=== PATIENT | female | born 1990 | race Caucasian/White ===

== ENCOUNTER 2018-05-21 15:55 | Inpatient (IN) ==
--- NOTE | 2018-05-21 16:26 | ED ---
History of Present Illness Primary Care Physician: NOT REQUIRED Chief Complaint: Elevated blood pressure History of Present Illness: 27-year-old G1 at 38/1 presenting to the OB ED for elevated blood pressures. Patient was seen in clinic today and found to have a blood pressure of 136/96. Patient states that she feels completely normal denies any headache, vision changes, chest pain or shortness of breath, nausea vomiting, abdominal pain, peripheral swelling. She also denies gush of fluid, vaginal bleeding, decreased movement or contractions. Patient has known HIV exposure as for partner is HIV positive. HIV testing in April 2018 was negative. Patient was also told that she has chronic hepatitis C, hepatitis C antibody and RNA were negative during this . She otherwise denies any complications during this . Patient has a history of IV drug use and is currently on Subutex. Weeks Gestation:: 38 Para: 0 : 1 PMFSH - Medical / Surgical Hx Neg / Unobtainable Surgical History: No Previous Surgery - Medical History Medical History: Medical History (Last Updated 05/21/18 @ 16:48 by Owen Bolanos MD, R2) Chronic hepatitis C HIV exposure - Tobacco History Smoking Status: Current every day smoker Packs Per Day: 0.5 - Alcohol History How Often Do You Have a Drink Containing Alcohol: Never - Substance Use History Substance History: Past History (Currently on Subutex. History of IV opiate abuse) Medications and Allergies Allergies Allergy/AdvReac Type Severity Reaction Status Date / Time No Known Allergies Allergy Uncoded 07/09/15 09:11 Home Medications Medication Instructions Recorded Confirmed Type buprenorphine HCl 16 mg SUBLINGUAL DAILY 05/21/18 05/21/18 History vit,[id number] 1 tab PO DAILY 05/21/18 05/21/18 History [PNV 29-1] Exam Vital signs: Vital Signs 05/21/18 16:23 Temperature 98.2 F Respiratory Rate 18 Narrative: GENERAL: Well-nourished, well-developed patient. SKIN: Warm and dry. HEAD: Normocephalic and atraumatic. EYES: No scleral icterus. No injection or drainage. ENT: No nasal drainage noted. Mucous membranes pink. Airway patent. NECK: Supple, trachea midline. No JVD. CARDIOVASCULAR: Regular rate and rhythm without murmurs, gallops, or rubs. RESPIRATORY: Breath sounds equal bilaterally. No accessory muscle use. ABDOMEN/GI: Abdomen soft, non-tender, bowel sounds present, no rebound, no guarding Gravid to 38 weeks size GENITOURINARY: Uterine Contractions: Absent FHT's: Category: 1 Baseline: 138 Reactive: y Variability: Moderate Decels: Absent EXTREMITIES: No cyanosis or edema. BACK: Nontender without obvious deformity. No CVA tenderness. NEUROLOGICAL: Awake and alert. Motor and sensory grossly within normal limits. Five out of 5 muscle strength in all muscle groups. Normal speech. - Constitutional no acute distress - Routine HEENT Exam Head: Present: normocephalic, atraumatic Eye: Present: PERRL - Routine Respiratory Exam Present: CTA bilaterally - Routine Cardiovascular Exam Present: RRR, S1, S2 - Routine Abdominal Exam Present: soft - Routine Exam Comments: Cervix 2-3/60/-3 vertex - Routine Neurological Exam Present: alert, oriented X3, CN II-XII intact Results - Labs CBC & Chem 7: 05/21/18 18:20 05/21/18 18:20 Labs: Urine from downstairs in the labs shows a greater than 500 of protein and a protein creatinine ratio 4.47 is exceedingly elevated Group B Strep: Negative Assessment and Plan - Diagnosis (1) Elevated blood pressure affecting in third trimester, antepartum Code(s): O16.3 - Unspecified maternal hypertension, third trimester Status: Acute Plan: 27-year-old G1 at 38/1 presenting to the OB ED with elevated blood pressure. Patient was sent from clinic after she was found to have a blood pressure of 136 /96. Patient is asymptomatic at this time and has not had any elevated blood pressures during this -Category 1 tracing with no contractions on the monitor -Blood pressure on presentation 123/88 -Ordering urinalysis, urine protein creatinine ratio, CBC, CMP, uric acid - Plan Plan for this patient is admission and induction of labor due to preeclampsia at 38 weeks. Cervix is favorable plan to begin Pitocin augmentation tonight and in the morning AROM with planned anticipated delivery after that Discharge Plan - Physicians Team ED Provider: Braydon Nickerson Primary Care Provider: NOT REQUIRED, - Rxs /Orders / Referrals /Forms Prescriptions: No Action buprenorphine HCl 8 mg Tablet, Sublingual 16 mg SUBLINGUAL DAILY vit,[id number] [PNV 29-1] 29 mg iron- 1 mg Tablet 1 tab PO DAILY - Discharge Instructions Print Language: Turkmen
[2018-05-21 18:57] LABS: Hematocrit 29.1 % (35.0-46.0); Hemoglobin 9.5 gm/dL (11.6-15.3); Mean Corpuscular HGB Conc 32.6 % (32.0-36.0); Mean Corpuscular Hemoglobin 24.1 pg (27.0-34.0); Mean Corpuscular Volume 73.9 fL (80.0-100.0); Mean Platelet Volume 8.8 fL (7.0-11.0); Platelet Count 306 th/mm3 (150-450); Red Blood Count 3.94 mil/mm3 (4.00-5.30); Red Cell Distribution Width 16.6 % (11.6-17.2); White Blood Count 10.5 th/mm3 (4.0-11.0)
[2018-05-21 19:05] LABS: Protein/Creatinine Ratio,Urine 4.47 (0.00-0.14)
[2018-05-21 19:10] LABS: Bacteria,Urine Many /hpf; Bilirubin,Urine Negative (Negative); Clarity,Urine Cloudy (Clear); Color,Urine Amber (Yellw/Straw); Glucose,Urine (UA) Negative (Negative); Hyaline Casts,Urine 17 /lpf (0-3); Leukocyte Esterase,Urine Small (Negative); Mucus,Urine Many /lpf (Occasional); Nitrite,Urine Negative (Negative); Specific Gravity,Urine 1.026 (1.002-1.035); Squamous Epithelial Cell,Urine 16 /hpf (0-5); Transitional Epi Cells,Urine <1 /hpf
[2018-05-21 19:17] LABS: Albumin 2.3 g/dL (3.4-5.0); Anion Gap 10 meq/L (5-15); Aspartate Aminotransferase 21 U/L (15-37); Blood Urea Nitrogen 13 mg/dL (7-18); Calcium 8.5 mg/dL (8.5-10.1); Carbon Dioxide 21.8 meq/L (21.0-32.0); Chloride 100 meq/L (98-107); Glomerular Filtration Rate Greater Than 89 mL/min (>89); Glucose,Random 60 mg/dL (74-106); Sodium 132 meq/L (136-145); Uric Acid 4.8 mg/dl (2.6-6.0)
[2018-05-21 19:18] LABS: Alanine Aminotransferase 20 U/L (10-53)
[2018-05-21] MEDS ORDERED: Sodium Chlor 0.9% Inj 500 ML IV.SIG PRN (19:20)
[2018-05-21] MEDS ORDERED: Sod Chloride 0.9% Inj 1,000 ML IV.CONT PRN (19:20)
[2018-05-21] MEDS ORDERED: fentaNYL Citrate Inj 100 MCG/2 ML Ampul IV.PUSH PRN ×2 (19:20)
[2018-05-21] MEDS ORDERED: Naloxone Inj 0.4 MG/ML Vial IV.PUSH PRN (19:20)
[2018-05-21] MEDS ORDERED: Oxytocin 30 Units/500ml Premix 30 UNITS/500 ML BAG IV.SIG ONE (19:20)
[2018-05-21 19:21] LABS: Alkaline Phosphatase 228 U/L (45-117); Total Protein 7.4 g/dL (6.4-8.2)
--- NOTE | 2018-05-21 19:27 | P.HPOB ---
OB - ED Note Patient Name: Carmel Rae Date of : 88 Patient Status: Emergency Emergency Provider: Braydon Nickerson Date: 05/21/18 16:24 Initialization Date: 05/21/18 16:24 History of Present Illness Primary Care Physician: NOT REQUIRED Chief Complaint: Elevated blood pressure History of Present Illness: 27-year-old G1 at 38/1 presenting to the OB ED for elevated blood pressures. Patient was seen in clinic today and found to have a blood pressure of 136/96. Patient states that she feels completely normal denies any headache, vision changes, chest pain or shortness of breath, nausea vomiting, abdominal pain, peripheral swelling. She also denies gush of fluid, vaginal bleeding, decreased movement or contractions. Patient has known HIV exposure as for partner is HIV positive. HIV testing in April 2018 was negative. Patient was also told that she has chronic hepatitis C, hepatitis C antibody and RNA were negative during this . She otherwise denies any complications during this . Patient has a history of IV drug use and is currently on Subutex. Weeks Gestation:: 38 Para: 0 : 1 PMFSH - Medical / Surgical Hx Neg / Unobtainable Surgical History: No Previous Surgery - Medical History Medical History: Medical History (Last Updated 05/21/18 @ 16:48 by Owen Bolanos MD, R2) Chronic hepatitis C HIV exposure - Tobacco History Smoking Status: Current every day smoker Packs Per Day: 0.5 - Alcohol History How Often Do You Have a Drink Containing Alcohol: Never - Substance Use History Substance History: Past History (Currently on Subutex. History of IV opiate abuse) Medications and Allergies Allergies Allergy/AdvReac Type Severity Reaction Status Date / Time No Known Allergies Allergy Uncoded 07/09/15 09:11 Home Medications Medication Instructions Recorded Confirmed Type buprenorphine HCl 16 mg SUBLINGUAL DAILY 05/21/18 05/21/18 History vit,[id number] 1 tab PO DAILY 05/21/18 05/21/18 History [PNV 29-1] Exam Vital signs: Vital Signs 05/21/18 16:23 Temperature 98.2 F Respiratory Rate 18 Narrative: GENERAL: Well-nourished, well-developed patient. SKIN: Warm and dry. HEAD: Normocephalic and atraumatic. EYES: No scleral icterus. No injection or drainage. ENT: No nasal drainage noted. Mucous membranes pink. Airway patent. NECK: Supple, trachea midline. No JVD. CARDIOVASCULAR: Regular rate and rhythm without murmurs, gallops, or rubs. RESPIRATORY: Breath sounds equal bilaterally. No accessory muscle use. ABDOMEN/GI: Abdomen soft, non-tender, bowel sounds present, no rebound, no guarding Gravid to 38 weeks size GENITOURINARY: Uterine Contractions: Absent FHT's: Category: 1 Baseline: 138 Reactive: y Variability: Moderate Decels: Absent EXTREMITIES: No cyanosis or edema. BACK: Nontender without obvious deformity. No CVA tenderness. NEUROLOGICAL: Awake and alert. Motor and sensory grossly within normal limits. Five out of 5 muscle strength in all muscle groups. Normal speech. - Constitutional no acute distress - Routine HEENT Exam Head: Present: normocephalic, atraumatic Eye: Present: PERRL - Routine Respiratory Exam Present: CTA bilaterally - Routine Cardiovascular Exam Present: RRR, S1, S2 - Routine Abdominal Exam Present: soft - Routine Exam Comments: Cervix 2-3/60/-3 vertex - Routine Neurological Exam Present: alert, oriented X3, CN II-XII intact Results - Labs CBC & Chem 7: 05/21/18 18:20 05/21/18 18:20 Labs: Urine from downstairs in the labs shows a greater than 500 of protein and a protein creatinine ratio 4.47 is exceedingly elevated Group B Strep: Negative Assessment and Plan - Diagnosis (1) Elevated blood pressure affecting in third trimester, antepartum Code(s): O16.3 - Unspecified maternal hypertension, third trimester Status: Acute Plan: 27-year-old G1 at 38/1 presenting to the OB ED with elevated blood pressure. Patient was sent from clinic after she was found to have a blood pressure of 136 /96. Patient is asymptomatic at this time and has not had any elevated blood pressures during this -Category 1 tracing with no contractions on the monitor -Blood pressure on presentation 123/88 -Ordering urinalysis, urine protein creatinine ratio, CBC, CMP, uric acid - Plan Plan for this patient is admission and induction of labor due to preeclampsia at 38 weeks. Cervix is favorable plan to begin Pitocin augmentation tonight and in the morning AROM with planned anticipated delivery after that Discharge Plan - Physicians Team ED Provider: Braydon Nickerson Primary Care Provider: NOT REQUIRED, - Rxs /Orders / Referrals /Forms Prescriptions: No Action buprenorphine HCl 8 mg Tablet, Sublingual 16 mg SUBLINGUAL DAILY vit,[id number] [PNV 29-1] 29 mg iron- 1 mg Tablet 1 tab PO DAILY - Discharge Instructions Print Language: Sami
[2018-05-21] MEDS ORDERED: Oxytocin 30 Units/500ml Premix 30 UNITS/500 ML BAG IV.SIG PRN (19:28)
[2018-05-21] MEDS ORDERED: Citric Acid/Sodium Citrate Liq 30 ML UDC PO SCH (19:30)
[2018-05-21 21:33] LABS: Baso % (Auto) 0.3 % (0.0-2.0); Hematocrit 28.9 % (35.0-46.0); Hemoglobin 9.1 gm/dL (11.6-15.3); Lymph % (Auto) 8.2 % (9.0-44.0); Mean Corpuscular HGB Conc 31.5 % (32.0-36.0); Mean Corpuscular Hemoglobin 23.1 pg (27.0-34.0); Mean Corpuscular Volume 73.4 fL (80.0-100.0); Mono # (Auto) 0.7 th/mm3 (0.0-0.9); Mono % (Auto) 5.7 % (0.0-8.0); Neut # (Auto) 10.6 th/mm3 (1.8-7.7); Neut % (Auto) 85.8 % (16.0-70.0); Platelet Count 300 th/mm3 (150-450); Red Blood Count 3.94 mil/mm3 (4.00-5.30); Red Cell Distribution Width 16.6 % (11.6-17.2); White Blood Count 12.3 th/mm3 (4.0-11.0)
[2018-05-21 21:56] LABS: Alanine Aminotransferase 20 U/L (10-53)
[2018-05-21 21:58] LABS: Alkaline Phosphatase 225 U/L (45-117); Total Protein 7.5 g/dL (6.4-8.2)
[2018-05-21 22:11] LABS: Albumin 2.3 g/dL (3.4-5.0); Anion Gap 12 meq/L (5-15); Aspartate Aminotransferase 31 U/L (15-37); Blood Urea Nitrogen 12 mg/dL (7-18); Calcium 8.5 mg/dL (8.5-10.1); Carbon Dioxide 19.5 meq/L (21.0-32.0); Chloride 100 meq/L (98-107); Glomerular Filtration Rate Greater Than 89 mL/min (>89); Glucose,Random 55 mg/dL (74-106); Potassium 4.1 meq/L (3.5-5.1); Sodium 131 meq/L (136-145)
[2018-05-22 00:18] LABS: Amphetamine Urine With Conf Neg (Neg); Benzodiazepine Urine With Conf Neg (Neg)
[2018-05-22] MEDS ORDERED: fentaNYL 2MCG-Bupiv 0.125% Epi 150 ML EPIDURAL ONE (09:59)
[2018-05-22] MEDS ORDERED: fentaNYL Citrate Inj 100 MCG/2 ML Ampul EPIDURAL ONE (10:59)
[2018-05-22] MEDS ORDERED: fentaNYL 2MCG-Bupiv 0.125% Epi 150 ML EPIDURAL PRN (10:59)
[2018-05-22] MEDS ORDERED: Naloxone Inj 0.4 MG/ML Vial IV.PUSH PRN ×2 (14:30→14:31)
[2018-05-22] MEDS ORDERED: Zolpidem Tartrate 5 MG Tablet PO PRN (14:30)
[2018-05-22] MEDS ORDERED: Benzocaine 20% Top Spray 60 ML Can TOPICAL PRN (14:30)
[2018-05-22] MEDS ORDERED: Acetaminophen 325 MG Tablet PO PRN ×2 (14:30→14:31)
[2018-05-22] MEDS ORDERED: Oxytocin 30 Units/500ml Premix 30 UNITS/500 ML BAG IV.CONT SCH (14:30)
[2018-05-22] MEDS ORDERED: Bisacodyl 10 MG Supp RECTAL PRN (14:30)
[2018-05-22] MEDS ORDERED: Ibuprofen 400 MG Tablet PO PRN (14:31)
[2018-05-22] MEDS ORDERED: Ketorolac Inj 30 MG/ML (IVP) Vial IV.PUSH PRN (14:32)
--- NOTE | 2018-05-22 14:38 | P.OBDELI ---
Weeks Gestation: 38 Medical Induction of Labor: Yes Artificial Rupture of Membrane: Yes Anesthesia: Epidural Episiotomy: midline Vaginal Delivery: Normal Presentation: Occiput anterior Nuchal Cord: None Delayed Cord Clamping (45 sec): Yes Placenta: Spontaneous delivery Laceration: Episiotomy, 3 deg Repair: Chromic running, Vicryl interrupted Estimated blood loss (mL): 200 Male A Weight: 3.195 kg score (1 min): 9 score (5 min): 9 Additional Information: Head delivered by maternal effort. No nuchal cord. Anterior shoulder delivered without complication. Placenta delivered without complication. 3rd degree repaired with Vicryl interrupted and then chromic running.
[2018-05-22] MEDS ORDERED: Silver Nitrate/Potassium Nitrate Applicator Sticks TOPICAL ONE (15:22)
[2018-05-22] MEDS ORDERED: Measles/Mumps/Rubella Vaccine Inj 0.5 ML Vial SQ ONE (16:00)
[2018-05-22] MEDS ORDERED: Diphtheria/Tetanus/Pertussis Vaccine Inj 0.5 ML Syringe IM ONE (16:00)
[2018-05-22] MEDS: Ibuprofen 400 MG Tablet PO PRN (20:36)
[2018-05-22] MEDS: Witch Hazel 50%/Glyderin 12.5% 40 Pad Jar RECTAL PRN (20:36)
[2018-05-22] MEDS: Senna/Docusate Sodium 8.6/50 MG Tablet PO SCH (20:36)
[2018-05-23] MEDS: Ibuprofen 400 MG Tablet PO PRN ×3 (05:31→22:44)
--- NOTE | 2018-05-23 08:42 | P.PNOB ---
Subjective Post day: 1 Interval history: Patient is a 27-year-old delivered at 38 weeks and 2days. Patient is day 1 after . Patient's pain is well-controlled. Patient reports eating and drinking without any nausea or vomiting. Patient reports minimal bleeding. Patient has passed gas but no bowel movements. Patient is walking without lower extremity pain or shortness of breath. Patient reports desire for contraception and breast-feeding. Objective Vital Signs/I&O: Vital Signs 05/22/18 09:40 05/22/18 09:45 05/22/18 10:25 Temperature 98.2 F Pulse Rate 75 65 Respiratory Rate 19 Blood Pressure 129/85 148/75 H 05/22/18 10:40 05/22/18 10:55 05/22/18 11:10 Temperature Pulse Rate 71 67 69 Respiratory Rate Blood Pressure 98/55 L 139/77 128/70 05/22/18 11:40 05/22/18 12:00 05/22/18 12:01 Temperature 97.7 F Pulse Rate 69 78 Respiratory Rate 19 Blood Pressure 128/81 115/65 05/22/18 12:40 05/22/18 14:01 05/22/18 14:30 Temperature Pulse Rate 72 77 Respiratory Rate 20 Blood Pressure 121/89 152/84 H 05/22/18 14:53 05/22/18 15:01 05/22/18 15:16 Temperature Pulse Rate 101 H 75 66 Respiratory Rate 18 Blood Pressure 152/121 H 125/57 L 135/90 05/22/18 17:16 05/22/18 21:50 05/23/18 00:00 Temperature 98.3 F 98.1 F Pulse Rate 74 90 74 Respiratory Rate 16 18 18 Blood Pressure 147/95 H 155/96 H 149/83 H Result Diagrams: 05/21/18 20:00 05/21/18 20:00 Objective Remarks: GENERAL: Well-nourished, well-developed patient. CARDIOVASCULAR: Regular rate and rhythm without murmurs, gallops, or rubs. RESPIRATORY: Breath sounds equal bilaterally. No accessory muscle use. ABDOMEN/GI: Abdomen soft, non-tender. Fundus: Firm, non-tender at umbilicus. GENITOURINARY: Light to moderate bleeding. EXTREMITIES: No cyanosis or edema, non-tender, without signs of DVT. Medications and IVs: Active Medications Acetaminophen (Tylenol) 650 mg PO Q4H PRN PRN Reason: PAIN SCALE 1 TO 2 Al Hydroxide/Mg Hydroxide (Milk Of Magnesia Liq) 30 ml PO Q12H PRN PRN Reason: Mild Constipation Benzocaine (Americaine 20% Top [place]) 1 spray TOPICAL Q4H PRN PRN Reason: For Perineum Discomfort Bisacodyl (Dulcolax Supp) 10 mg RECTAL DAILY PRN PRN Reason: SEVERE CONSITIPATION Buprenorphine HCl (Sublingual) 8 mg SL BID JESSICA Last Admin: 05/22/18 20:37 Dose: 8 mg Ephedrine Sulfate (Ephedrine/Ns Syringe) 10 mg IV.PUSH UNSCH PRN PRN Reason: SEE LABEL COMMENTS Stop: 05/23/18 10:59 Oxytocin (Pitocin 30 Units/Ns 500 Ml Premix) 30 units in 500 mls @ 2 mls/hr IV.SIG TITRATE PRN; Protocol PRN Reason: For induction of labor Last Admin: 05/22/18 12:19 Dose: 2 milliunit/min, 2 mls/hr Fentanyl/Bupivacaine/Sodium Chlor (Fentanyl 2 Mcg-Bupiv 0.125% Epi) 150 mls @ 12 mls/hr EPIDURAL PRN PRN PRN Reason: for Labor Pain Ibuprofen (Motrin) 800 mg PO Q8H PRN PRN Reason: For cramping Last Admin: 05/23/18 05:31 Dose: 800 mg Ketorolac Tromethamine (Toradol Inj) 30 mg IV.PUSH Q6H PRN PRN Reason: PAIN 6-10;IF UNABLE TO TAKE PO Lactulose (Lactulose Liq) 30 ml PO DAILY PRN PRN Reason: SEVERE CONSITIPATION Miscellaneous Information (Misc Information) 1 each OTHER UNSCH PRN PRN Reason: SEE LABEL COMMENTS Stop: 05/23/18 10:59 Miscellaneous Information (Misc Information) 1 each OTHER UNSCH PRN PRN Reason: SEE LABEL COMMENTS Stop: 05/23/18 10:59 Naloxone HCl (Narcan Inj) 0.1 mg IV.PUSH Q2M PRN PRN Reason: for opiate reversal Naloxone HCl (Narcan Inj) 0.1 mg IV.PUSH Q2M PRN PRN Reason: for opiate reversal Ondansetron HCl (Zofran Odt) 4 mg PO Q6H PRN PRN Reason: NAUSEA OR VOMITING Oxycodone/Acetaminophen (Percocet 5/325 Mg) 1 tab PO Q4H PRN PRN Reason: PAIN 6-10 Last Admin: 05/23/18 05:31 Dose: 1 tab Senna/Docusate Sodium (Marion-Colace) 1 tab PO BID JESSICA Last Admin: 05/22/18 20:36 Dose: 1 tab Sennosides (Senokot) 17.2 mg PO Q12H PRN PRN Reason: Moderate Constipation Sodium Chloride (Ns Flush) 2 ml IV.FLUSH BID JESSICA Sodium Chloride (Ns Flush) 2 ml IV.FLUSH BID JESSICA Sodium Chloride (Ns Flush) 2 ml IV.FLUSH PRN PRN PRN Reason: FLUSH AFTER USING IV ACCESS Sodium Chloride (Ns Flush) 2 ml IV.FLUSH PRN PRN PRN Reason: FLUSH AFTER USING IV ACCESS Witch Alejandra/Glycerin (Tucks Pads) 1 applicatio RECTAL QID PRN PRN Reason: HEMORRHOIDS Last Admin: 05/22/18 20:36 Dose: 1 applicatio Zolpidem Tartrate (Ambien) 5 mg PO HS PRN PRN Reason: SLEEP Assessment and Plan - Diagnosis (1) Vaginal delivery Code(s): O80 - Encounter for full-term uncomplicated delivery Status: Acute Plan: Patient is a 27-year-old delivered at 38 weeks and 2days. Patient is day 1 after .Patient was counseled to do 6 weeks of pelvic rest. Patient was counseled to follow up in 6 weeks. Patient requested follow-up and contraception. --AF VSS --Continue routine care --Motrin and Tylenol when necessary for pain --Encourage OOB --Pelvic rest for 6 weeks will need follow-up appointment at that time. --Contraception: Depo --Anticipate discharge tomorrow
[2018-05-23] MEDS: Senna/Docusate Sodium 8.6/50 MG Tablet PO SCH ×2 (09:52→22:43)
--- NOTE | 2018-05-24 07:47 | P.PNOB ---
Subjective Interval history: Patient is a 27-year-old delivered at 38 weeks and 2 days. Patient is day 2 after . Patient's pain is well-controlled. Patient reports eating and drinking without any nausea or vomiting. Patient reports minimal bleeding. Patient has passed gas and bowel movements. Patient is walking without lower extremity pain or shortness of breath. Patient reports desire for contraceptio. Objective Vital Signs/I&O: Vital Signs 05/23/18 08:30 05/23/18 12:00 05/23/18 19:00 Temperature 97.9 F 97.7 F Pulse Rate 54 L 63 20 L Respiratory Rate 20 20 20 Blood Pressure 154/90 H 136/84 140/84 Result Diagrams: 05/21/18 20:00 05/21/18 20:00 Objective Remarks: GENERAL: Well-nourished, well-developed patient. CARDIOVASCULAR: Regular rate and rhythm without murmurs, gallops, or rubs. RESPIRATORY: Breath sounds equal bilaterally. No accessory muscle use. ABDOMEN/GI: Abdomen soft, non-tender. Fundus: Firm, non-tender at umbilicus. GENITOURINARY: Light to moderate bleeding. EXTREMITIES: No cyanosis or edema, non-tender, without signs of DVT. Medications and IVs: Active Medications Acetaminophen (Tylenol) 650 mg PO Q4H PRN PRN Reason: PAIN SCALE 1 TO 2 Al Hydroxide/Mg Hydroxide (Milk Of Magnesia Liq) 30 ml PO Q12H PRN PRN Reason: Mild Constipation Benzocaine (Americaine 20% Top [place]) 1 spray TOPICAL Q4H PRN PRN Reason: For Perineum Discomfort Bisacodyl (Dulcolax Supp) 10 mg RECTAL DAILY PRN PRN Reason: SEVERE CONSITIPATION Buprenorphine HCl (Sublingual) 8 mg SL BID JESSICA Last Admin: 05/24/18 03:55 Dose: Not Given Oxytocin (Pitocin 30 Units/Ns 500 Ml Premix) 30 units in 500 mls @ 2 mls/hr IV.SIG TITRATE PRN; Protocol PRN Reason: For induction of labor Last Admin: 05/22/18 12:19 Dose: 2 milliunit/min, 2 mls/hr Fentanyl/Bupivacaine/Sodium Chlor (Fentanyl 2 Mcg-Bupiv 0.125% Epi) 150 mls @ 12 mls/hr EPIDURAL PRN PRN PRN Reason: for Labor Pain Ibuprofen (Motrin) 800 mg PO Q8H PRN PRN Reason: For cramping Last Admin: 05/23/18 22:44 Dose: 800 mg Ketorolac Tromethamine (Toradol Inj) 30 mg IV.PUSH Q6H PRN PRN Reason: PAIN 6-10;IF UNABLE TO TAKE PO Lactulose (Lactulose Liq) 30 ml PO DAILY PRN PRN Reason: SEVERE CONSITIPATION Medroxyprogesterone Acetate (Depo-Provera Inj) 150 mg IM ONCE ONE Stop: 05/24/18 08:01 Naloxone HCl (Narcan Inj) 0.1 mg IV.PUSH Q2M PRN PRN Reason: for opiate reversal Naloxone HCl (Narcan Inj) 0.1 mg IV.PUSH Q2M PRN PRN Reason: for opiate reversal Ondansetron HCl (Zofran Odt) 4 mg PO Q6H PRN PRN Reason: NAUSEA OR VOMITING Oxycodone/Acetaminophen (Percocet 5/325 Mg) 1 tab PO Q4H PRN PRN Reason: PAIN 6-10 Last Admin: 05/24/18 03:52 Dose: 1 tab Senna/Docusate Sodium (Mar[place]-Colace) 1 tab PO BID [facility] Last Admin: 05/23/18 22:43 Dose: 1 tab Sennosides (Senokot) 17.2 mg PO Q12H PRN PRN Reason: Moderate Constipation Sodium Chloride (Ns Flush) 2 ml IV.FLUSH BID [facility] Last Admin: 05/23/18 22:45 Dose: Not Given Sodium Chloride (Ns Flush) 2 ml IV.FLUSH BID [facility] Last Admin: 05/23/18 22:45 Dose: Not Given Sodium Chloride (Ns Flush) 2 ml IV.FLUSH PRN PRN PRN Reason: FLUSH AFTER USING IV ACCESS Sodium Chloride (Ns Flush) 2 ml IV.FLUSH PRN PRN PRN Reason: FLUSH AFTER USING IV ACCESS Witch Alejandra/Glycerin (Tucks Pads) 1 applicatio RECTAL QID PRN PRN Reason: HEMORRHOIDS Last Admin: 05/22/18 20:36 Dose: 1 applicatio Zolpidem Tartrate (Ambien) 5 mg PO HS PRN PRN Reason: SLEEP Assessment and Plan - Diagnosis (1) Vaginal delivery Code(s): O80 - Encounter for full-term uncomplicated delivery Status: Acute Plan: Patient is a 27-year-old delivered at 38 weeks and 2days. Patient is day 2 after .Patient was counseled to do 6 weeks of pelvic rest. Patient was counseled to follow up in 6 weeks. Patient requested follow-up and contraception. --AF VSS --Continue routine care --Motrin and Tylenol when necessary for pain --Encourage OOB --Pelvic rest for 6 weeks will need follow-up appointment at that time. --Contraception: Depo --Anticipate discharge today
[2018-05-24] MEDS ORDERED: medroxyPROGESTERone Acetate Inj 150 MG/ML Syringe IM ONE (08:00)
[2018-05-24] MEDS ORDERED: NIFEdipine 10 MG Capsule PO ONE (08:45)
[2018-05-24] MEDS: Labetalol 100 MG Tablet PO SCH ×2 (09:21→20:59)
[2018-05-24] MEDS: Ibuprofen 400 MG Tablet PO PRN (14:55)
[2018-05-24] MEDS: Senna/Docusate Sodium 8.6/50 MG Tablet PO SCH ×2 (17:52→21:00)
[2018-05-25] MEDS: Senna/Docusate Sodium 8.6/50 MG Tablet PO SCH ×2 (08:44→21:24)
[2018-05-25] MEDS: Labetalol 100 MG Tablet PO SCH (08:44)
--- NOTE | 2018-05-25 12:43 | P.PNOB ---
Subjective Post day: 3 Interval history: Ms Su had no acute events overnight; however, her BP is elevated to 172/ 91 this morning prior to her morning Labetalol dose. Pain is controlled, taking PO, ambulating, voiding and stooling. Lochia reducing in volume. Pt is breast and bottle feeding. Pt received depo-provera injection for control. Denies CP, SOB, N/V/D and leg pain. Objective Vital Signs/I&O: Vital Signs 05/24/18 16:34 05/24/18 20:00 05/25/18 07:40 Temperature 98.2 F 98.0 F Pulse Rate 78 74 79 Respiratory Rate Blood Pressure 132/81 141/88 H 172/91 H 05/25/18 09:40 Temperature Pulse Rate Respiratory Rate Blood Pressure 141/89 H Result Diagrams: 05/21/18 20:00 05/21/18 20:00 Objective Remarks: GENERAL: Well-nourished, well-developed patient in NAD. HEENT: Denies KHAN and visual changes. CARDIOVASCULAR: Regular rate and rhythm without murmurs, gallops, or rubs. RESPIRATORY: Breath sounds equal bilaterally. No accessory muscle use. ABDOMEN/GI: Abdomen soft, non-tender. Fundus: Firm, non-tender at umbilicus. GENITOURINARY: Light to moderate bleeding. EXTREMITIES: No cyanosis or edema, non-tender, without signs of DVT. Medications and IVs: Active Medications Acetaminophen (Tylenol) 650 mg PO Q4H PRN PRN Reason: PAIN SCALE 1 TO 2 Al Hydroxide/Mg Hydroxide (Milk Of Magnesia Liq) 30 ml PO Q12H PRN PRN Reason: Mild Constipation Benzocaine (Americaine 20% Top [place]) 1 spray TOPICAL Q4H PRN PRN Reason: For Perineum Discomfort Bisacodyl (Dulcolax Supp) 10 mg RECTAL DAILY PRN PRN Reason: SEVERE CONSITIPATION Buprenorphine HCl (Sublingual) 8 mg SL BID [facility] Last Admin: 05/25/18 08:44 Dose: 8 mg Oxytocin (Pitocin 30 Units/Ns 500 Ml Premix) 30 units in 500 mls @ 2 mls/hr IV.SIG TITRATE PRN; Protocol PRN Reason: For induction of labor Last Admin: 05/22/18 12:19 Dose: 2 milliunit/min, 2 mls/hr Fentanyl/Bupivacaine/Sodium Chlor (Fentanyl 2 Mcg-Bupiv 0.125% Epi) 150 mls @ 12 mls/hr EPIDURAL PRN PRN PRN Reason: for Labor Pain Ibuprofen (Motrin) 800 mg PO Q8H PRN PRN Reason: For cramping Last Admin: 05/24/18 23:06 Dose: 800 mg Ketorolac Tromethamine (Toradol Inj) 30 mg IV.PUSH Q6H PRN PRN Reason: PAIN 6-10;IF UNABLE TO TAKE PO Labetalol HCl (Trandate) 100 mg PO BID [facility] Last Admin: 05/25/18 08:44 Dose: 100 mg Lactulose (Lactulose Liq) 30 ml PO DAILY PRN PRN Reason: SEVERE CONSITIPATION Naloxone HCl (Narcan Inj) 0.1 mg IV.PUSH Q2M PRN PRN Reason: for opiate reversal Naloxone HCl (Narcan Inj) 0.1 mg IV.PUSH Q2M PRN PRN Reason: for opiate reversal Ondansetron HCl (Zofran Odt) 4 mg PO Q6H PRN PRN Reason: NAUSEA OR VOMITING Oxycodone/Acetaminophen (Percocet 5/325 Mg) 1 tab PO Q4H PRN PRN Reason: PAIN 6-10 Last Admin: 05/24/18 21:00 Dose: 1 tab Senna/Docusate Sodium (Marion-Colace) 1 tab PO BID [facility] Last Admin: 05/25/18 08:44 Dose: 1 tab Sennosides (Senokot) 17.2 mg PO Q12H PRN PRN Reason: Moderate Constipation Sodium Chloride (Ns Flush) 2 ml IV.FLUSH BID [facility] Last Admin: 05/25/18 03:31 Dose: Not Given Sodium Chloride (Ns Flush) 2 ml IV.FLUSH BID [facility] Last Admin: 05/25/18 03:31 Dose: Not Given Sodium Chloride (Ns Flush) 2 ml IV.FLUSH PRN PRN PRN Reason: FLUSH AFTER USING IV ACCESS Sodium Chloride (Ns Flush) 2 ml IV.FLUSH PRN PRN PRN Reason: FLUSH AFTER USING IV ACCESS Witch Alejandra/Glycerin (Tucks Pads) 1 applicatio RECTAL QID PRN PRN Reason: HEMORRHOIDS Last Admin: 05/22/18 20:36 Dose: 1 applicatio Zolpidem Tartrate (Ambien) 5 mg PO HS PRN PRN Reason: SLEEP Assessment and Plan - Diagnosis (1) Vaginal delivery Code(s): O80 - Encounter for full-term uncomplicated delivery Status: Acute Plan: Patient is a 27-year-old delivered at 38 weeks and 2 days. Patient is day 3 after . Patient was counseled to observe 6 weeks of pelvic rest. Patient advised to follow up with doctor in 1 week due to elevated BPs. Depo-provera injection provided for contraception prior to discharge. BP elevated this morning to 172/91 prior to morning dose of Labetalol. One hour following Labetalol 100 mg pt BP 141/89. Vital signs otherwise wnl and physical exam benign. 1. care --Continue routine care --Motrin and Tylenol when necessary for pain --Encourage OOB --Pelvic rest for 6 weeks will need follow-up appointment at that time. --Contraception: Depo injection provided during hospitalization 2. PIH --BP 172/91 this morning prior to Labetalol and 141/89 1 hour afterward --Will observe today; check VS q4h --Pt will need to follow up with [facility] in 1-3 days following discharge due to PIH Pt DW Maximo Boyle and Alessandro - Plan Plan for this patient is admission and induction of labor due to preeclampsia at 38 weeks. Cervix is favorable plan to begin Pitocin augmentation tonight and in the morning AROM with planned anticipated delivery after that
[2018-05-25] MEDS ORDERED: Labetalol 100 MG Tablet PO SCH ×2 (17:00)
[2018-05-26] MEDS ORDERED: Labetalol 200 MG Tablet PO ONE (08:45)
[2018-05-26] MEDS: Witch Hazel 50%/Glyderin 12.5% 40 Pad Jar RECTAL PRN (08:48)
[2018-05-26] MEDS: Senna/Docusate Sodium 8.6/50 MG Tablet PO SCH ×2 (08:49→21:36)
--- NOTE | 2018-05-26 11:55 | P.PNOB ---
Subjective Interval history: AFVSS overnight. Decreased lochia. Denies dysuria. No breast tenderness. Appetite good. No nausea or vomiting. No lightheadedness, dizziness. Ambulating well. Denies calf pain or shortness of breath. Otherwise, she is doing well this morning and has no other complaints. Objective Vital Signs/I&O: Vital Signs 05/25/18 12:50 05/25/18 15:15 05/25/18 21:20 Temperature 97.7 F Pulse Rate 86 86 90 Respiratory Rate 20 Blood Pressure 147/92 H 156/88 H 144/91 H 05/26/18 01:00 05/26/18 02:15 05/26/18 08:25 Temperature 97.6 F Pulse Rate 86 82 87 Respiratory Rate 18 16 18 Blood Pressure 163/102 H 134/86 142/94 H Result Diagrams: 05/21/18 20:00 05/21/18 20:00 Objective Remarks: GENERAL: Well-nourished, well-developed patient. CARDIOVASCULAR: Regular rate and rhythm without murmurs, gallops, or rubs. RESPIRATORY: Breath sounds equal bilaterally. No accessory muscle use. ABDOMEN/GI: Abdomen soft, non-tender. Fundus: Firm, non-tender at umbilicus. GENITOURINARY: Light to moderate bleeding. EXTREMITIES: No cyanosis or edema, non-tender, without signs of DVT. Medications and IVs: Active Medications Acetaminophen (Tylenol) 650 mg PO Q4H PRN PRN Reason: PAIN SCALE 1 TO 2 Al Hydroxide/Mg Hydroxide (Milk Of Magnesia Liq) 30 ml PO Q12H PRN PRN Reason: Mild Constipation Benzocaine (Americaine 20% [place]) 1 spray TOPICAL Q4H PRN PRN Reason: For Perineum Discomfort Last Admin: 05/26/18 08:48 Dose: 1 spray Bisacodyl (Dulcolax Supp) 10 mg RECTAL DAILY PRN PRN Reason: SEVERE CONSITIPATION Buprenorphine HCl (Sublingual) 8 mg SL BID JESSICA Last Admin: 05/26/18 09:37 Dose: 8 mg Oxytocin (Pitocin 30 Units/Ns 500 Ml Premix) 30 units in 500 mls @ 2 mls/hr IV.SIG TITRATE PRN; Protocol PRN Reason: For induction of labor Last Admin: 05/22/18 12:19 Dose: 2 milliunit/min, 2 mls/hr Fentanyl/Bupivacaine/Sodium Chlor (Fentanyl 2 Mcg-Bupiv 0.125% Epi) 150 mls @ 12 mls/hr EPIDURAL PRN PRN PRN Reason: for Labor Pain Ibuprofen (Motrin) 800 mg PO Q8H PRN PRN Reason: For cramping Last Admin: 05/26/18 08:48 Dose: 800 mg Ketorolac Tromethamine (Toradol Inj) 30 mg IV.PUSH Q6H PRN PRN Reason: PAIN 6-10;IF UNABLE TO TAKE PO Labetalol HCl (Trandate) 200 mg PO BID [facility] Lactulose (Lactulose Liq) 30 ml PO DAILY PRN PRN Reason: SEVERE CONSITIPATION Naloxone HCl (Narcan Inj) 0.1 mg IV.PUSH Q2M PRN PRN Reason: for opiate reversal Naloxone HCl (Narcan Inj) 0.1 mg IV.PUSH Q2M PRN PRN Reason: for opiate reversal Ondansetron HCl (Zofran Odt) 4 mg PO Q6H PRN PRN Reason: NAUSEA OR VOMITING Oxycodone/Acetaminophen (Percocet 5/325 Mg) 1 tab PO Q4H PRN PRN Reason: PAIN 6-10 Last Admin: 05/26/18 08:49 Dose: 1 tab Senna/Docusate Sodium ([place]-Colace) 1 tab PO BID [facility] Last Admin: 05/26/18 08:49 Dose: 1 tab Sennosides (Senokot) 17.2 mg PO Q12H PRN PRN Reason: Moderate Constipation Sodium Chloride (Ns Flush) 2 ml IV.FLUSH BID [facility] Last Admin: 05/26/18 08:50 Dose: Not Given Sodium Chloride (Ns Flush) 2 ml IV.FLUSH BID [facility] Last Admin: 05/26/18 08:50 Dose: Not Given Sodium Chloride (Ns Flush) 2 ml IV.FLUSH PRN PRN PRN Reason: FLUSH AFTER USING IV ACCESS Sodium Chloride (Ns Flush) 2 ml IV.FLUSH PRN PRN PRN Reason: FLUSH AFTER USING IV ACCESS Witch Alejandra/Glycerin (Tucks Pads) 1 applicatio RECTAL QID PRN PRN Reason: HEMORRHOIDS Last Admin: 05/26/18 08:48 Dose: 1 applicatio Zolpidem Tartrate (Ambien) 5 mg PO HS PRN PRN Reason: SLEEP Assessment and Plan - Diagnosis (1) Vaginal delivery Code(s): O80 - Encounter for full-term uncomplicated delivery Status: Acute Plan: Patient is a 27-year-old delivered at 38 weeks and 2 days. Patient is day 3 after . Patient was counseled to observe 6 weeks of pelvic rest. Patient advised to follow up with doctor in 1 week due to elevated BPs. Depo-provera injection provided for contraception prior to discharge. BP elevated this morning to 172/91 prior to morning dose of Labetalol. One hour following Labetalol 100 mg pt BP 141/89. Vital signs otherwise wnl and physical exam benign. 1. care --Continue routine care --Motrin and Tylenol when necessary for pain --Encourage OOB --Pelvic rest for 6 weeks will need follow-up appointment at that time. --Contraception: Depo injection provided during hospitalization 2. PIH --BP 172/91 this morning prior to Labetalol and 141/89 1 hour afterward --Will observe today; check VS q4h --Pt will need to follow up with [facility] in 1-3 days following discharge due to PIH Pt DW Maximo Boyle and Alessandro - Plan Patient is a 27-year-old delivered at 38 weeks and 2 days. Patient is day 4 after . Patient was counseled to observe 6 weeks of pelvic rest. Patient advised to follow up with doctor in 1 week due to elevated BPs. Depo-provera injection provided for contraception prior to discharge. BP elevated this morning to 142/94. 1. care --Continue routine care --Motrin and Tylenol when necessary for pain --Encourage OOB --Pelvic rest for 6 weeks will need follow-up appointment at that time. --Contraception: Depo injection provided during hospitalization 2. PIH --BP 142/94 this morning labetalol increased to 200 BID --Will observe today; check VS q4h --Pt will need to follow up with [facility] in 1-3 days following discharge due to PIH Pt MISSY Francois - Attending Attestation The patient was seen and examined by me and I participated in all mares decision making. Continue to optimize blood pressure control today. SMS
[2018-05-26] MEDS: Labetalol 200 MG Tablet PO SCH (21:36)
[2018-05-27 06:31] VITALS: RESP 18
[2018-05-27] MEDS: Senna/Docusate Sodium 8.6/50 MG Tablet PO SCH (09:17)
[2018-05-27] MEDS: Labetalol 200 MG Tablet PO SCH (09:17)
[2018-05-27 09:29] VITALS: BP 140/62; PULSE 77; TEMP 98.4
--- NOTE | 2018-05-27 09:43 | P.PNOB ---
Subjective Interval history: AFVSS overnight. Decreased lochia. Denies dysuria. No breast tenderness. Appetite good. No nausea or vomiting. No lightheadedness, dizziness. Ambulating well. Denies calf pain or shortness of breath. Otherwise, she is doing well this morning and has no other complaints. Objective Vital Signs/I&O: Vital Signs 05/26/18 12:45 05/26/18 15:20 05/26/18 21:25 Temperature 98.6 F 99.0 F Pulse Rate 77 81 81 Respiratory Rate 18 Blood Pressure 129/86 145/87 H 148/83 H 05/27/18 00:48 05/27/18 04:30 05/27/18 08:00 Temperature 98.7 F 99.1 F 98.4 F Pulse Rate 79 71 77 Respiratory Rate 16 18 Blood Pressure 141/80 H 145/87 H 140/62 Result Diagrams: 05/21/18 20:00 05/21/18 20:00 Objective Remarks: GENERAL: Well-nourished, well-developed patient. CARDIOVASCULAR: Regular rate and rhythm without murmurs, gallops, or rubs. RESPIRATORY: Breath sounds equal bilaterally. No accessory muscle use. ABDOMEN/GI: Abdomen soft, non-tender. Fundus: Firm, non-tender at umbilicus. GENITOURINARY: Light to moderate bleeding. EXTREMITIES: No cyanosis or edema, non-tender, without signs of DVT. Medications and IVs: Active Medications Acetaminophen (Tylenol) 650 mg PO Q4H PRN PRN Reason: PAIN SCALE 1 TO 2 Al Hydroxide/Mg Hydroxide (Milk Of Magnesia Liq) 30 ml PO Q12H PRN PRN Reason: Mild Constipation Benzocaine (Americaine 20% Top [place]) 1 spray TOPICAL Q4H PRN PRN Reason: For Perineum Discomfort Last Admin: 05/26/18 08:48 Dose: 1 spray Bisacodyl (Dulcolax Supp) 10 mg RECTAL DAILY PRN PRN Reason: SEVERE CONSITIPATION Buprenorphine HCl (Sublingual) 8 mg SL BID JESSICA Last Admin: 05/27/18 09:17 Dose: 8 mg Oxytocin (Pitocin 30 Units/Ns 500 Ml Premix) 30 units in 500 mls @ 2 mls/hr IV.SIG TITRATE PRN; Protocol PRN Reason: For induction of labor Last Admin: 05/22/18 12:19 Dose: 2 milliunit/min, 2 mls/hr Fentanyl/Bupivacaine/Sodium Chlor (Fentanyl 2 Mcg-Bupiv 0.125% Epi) 150 mls @ 12 mls/hr EPIDURAL PRN PRN PRN Reason: for Labor Pain Ibuprofen (Motrin) 800 mg PO Q8H PRN PRN Reason: For cramping Last Admin: 05/27/18 04:27 Dose: 800 mg Ketorolac Tromethamine (Toradol Inj) 30 mg IV.PUSH Q6H PRN PRN Reason: PAIN 6-10;IF UNABLE TO TAKE PO Labetalol HCl (Trandate) 200 mg PO BID [facility] Last Admin: 05/27/18 09:17 Dose: 200 mg Lactulose (Lactulose Liq) 30 ml PO DAILY PRN PRN Reason: SEVERE CONSITIPATION Naloxone HCl (Narcan Inj) 0.1 mg IV.PUSH Q2M PRN PRN Reason: for opiate reversal Naloxone HCl (Narcan Inj) 0.1 mg IV.PUSH Q2M PRN PRN Reason: for opiate reversal Ondansetron HCl (Zofran Odt) 4 mg PO Q6H PRN PRN Reason: NAUSEA OR VOMITING Oxycodone/Acetaminophen (Percocet 5/325 Mg) 1 tab PO Q4H PRN PRN Reason: PAIN 6-10 Last Admin: 05/27/18 04:27 Dose: 1 tab Senna/Docusate Sodium ([place]-Colace) 1 tab PO BID [facility] Last Admin: 05/27/18 09:17 Dose: 1 tab Sennosides (Senokot) 17.2 mg PO Q12H PRN PRN Reason: Moderate Constipation Sodium Chloride (Ns Flush) 2 ml IV.FLUSH BID [facility] Last Admin: 05/27/18 09:07 Dose: Not Given Sodium Chloride (Ns Flush) 2 ml IV.FLUSH BID [facility] Last Admin: 05/27/18 09:07 Dose: Not Given Sodium Chloride (Ns Flush) 2 ml IV.FLUSH PRN PRN PRN Reason: FLUSH AFTER USING IV ACCESS Sodium Chloride (Ns Flush) 2 ml IV.FLUSH PRN PRN PRN Reason: FLUSH AFTER USING IV ACCESS Witch Alejandra/Glycerin (Tucks Pads) 1 applicatio RECTAL QID PRN PRN Reason: HEMORRHOIDS Last Admin: 05/26/18 08:48 Dose: 1 applicatio Zolpidem Tartrate (Ambien) 5 mg PO HS PRN PRN Reason: SLEEP Assessment and Plan - Diagnosis (1) Vaginal delivery Code(s): O80 - Encounter for full-term uncomplicated delivery Status: Acute Plan: Patient is a 27-year-old delivered at 38 weeks and 2 days. Patient is day 3 after . Patient was counseled to observe 6 weeks of pelvic rest. Patient advised to follow up with doctor in 1 week due to elevated BPs. Depo-provera injection provided for contraception prior to discharge. BP 140/62 this morning. 1. care --Continue routine care --Motrin and Tylenol when necessary for pain --Encourage OOB --Pelvic rest for 6 weeks will need follow-up appointment at that time. --Contraception: Depo injection provided during hospitalization 2. PIH --Will observe today; check VS q4h --Pt will need to follow up with [facility] in 1-3 days following discharge due to PIH Pt DW Maximo Boyle and Alessandro - Plan Patient is a 27-year-old delivered at 38 weeks and 2 days. Patient is day 4 after . Patient was counseled to observe 6 weeks of pelvic rest. Patient advised to follow up with doctor in 1 week due to elevated BPs. Depo-provera injection provided for contraception prior to discharge. BP this morning 140/62. 1. care --Continue routine care --Motrin and Tylenol when necessary for pain --Encourage OOB --Pelvic rest for 6 weeks will need follow-up appointment at that time. --Contraception: Depo injection provided during hospitalization 2. PIH --BP 140/62 this morning labetalol continued at 200 BID --F/U with OB within 1 week Pt MISSY Nickerson
== END 2018-05-27 15:56 | disposition home or self-care (01) ==
LOC: HOBED 15:55 → H2E 19:00 → H1EA 05-22 16:58
PROVIDERS: ADMIT Obstetrics & Gynecology Maternal & Fetal Medicine; ATTEND Obstetrics & Gynecology Maternal & Fetal Medicine